=== PATIENT | male | born 1980 | race Caucasian/White ===

== ENCOUNTER 2018-12-30 21:33 | Emergency (ER) | payer OTHER ==
[~2018-12-30] VITALS: Ht 177.8 cm; Wt 81.6 kg
--- NOTE | 2018-12-30 22:30 | NUR ---
CALLED IN [facility], NO ANSWER.
--- NOTE | 2018-12-30 23:17 | NUR ---
CALLED IN [facility], NO ANSWER.
[2018-12-31 00:34] VITALS: BP 124/65
[2018-12-31] MEDS ORDERED: IBUPROFEN 600 MG TABLET PO ONE ×2 (01:00→01:01)
--- NOTE | 2018-12-31 01:11 | NUR ---
Patient given written and verbal discharge instructions. Patient verbalizes understanding of instructions. Patient is ambulatory with steady gait. Refuses offer of custodial placement. Patient given list of available shelters in surrounding area.
[2018-12-31] MEDS ORDERED: CLINDAMYCIN HCL 150 MG CAPSULE PO ONE ×2 (01:41→02:00)
== END 2018-12-31 01:16 | disposition home or self-care (01) ==
LOC: ER 21:37
DX: L03.116 Cellulitis of left lower limb (principal); Z60.2 Problems related to living alone

== ENCOUNTER 2019-04-06 19:33 | Emergency (ER) | payer OTHER ==
[~2019-04-06] VITALS: Ht 177.8 cm; Wt 83.9 kg
[2019-04-06 19:35] VITALS: BP 127/77
[2019-04-06] MEDS ORDERED: PENICILLIN G BENZATHINE 2.4 MMU/4 ML ML IM ONE ×2 (19:57→20:00)
== END 2019-04-06 20:04 | disposition home or self-care (01) ==
LOC: ER 19:37
DX: A51.0 Primary genital syphilis (principal); Z60.2 Problems related to living alone
CPT/HCPCS: 96372; 99283; J0558